=== PATIENT | male | born 1960 | race Caucasian/White ===

== ENCOUNTER → 2020-02-27 11:42 | Outpatient (BNVA) | payer OTHER, SELFPAY | PROVIDERS: Visit Provider Nurse Practitioner Family | DX: R68.89 Other general symptoms and signs (principal) | CPT/HCPCS: 87635 ==

== ENCOUNTER 2020-06-16 11:48 | Outpatient (CLI) | payer OTHER, SELFPAY ==
--- NOTE | 2020-06-16 11:58 | US_ITS ---
WS: [id number] Complete ABDOMINAL ULTRASOUND HISTORY: ABD PAIN COMPARISON: None available. Liver: 16.8 cm in length. Mildly enlarged liver with mild diffuse hepatic steatosis. No mass. No bile duct dilatation. Gallbladder: Normally distended with no gallstones, wall thickening or pericholecystic fluid. Gallbladder wall thickness: 0.2 cm. Pancreas: Normal size and echogenicity. CBD: 0.5 cm. Right kidney: 11.2 cm x 5.7 cm x 4.0 cm. No mass, cortical thickening or hydronephrosis. Left kidney: 11.8 cm x 4.2 cm x 4.5 cm. No mass, cortical thickening or hydronephrosis. Spleen: Normal size and echogenicity. Abdominal aorta and IVC are within normal limits. No ascites. US/US abdomen complete* [id number] IMPRESSION: 1. Normal gallbladder. 2. Mild hepatomegaly and hepatic steatosis.
--- NOTE | 2020-06-16 11:58 | US_ITS ---
WS: [id number] TESTICULAR ULTRASOUND HISTORY: R GROIN PAIN, DIZZINESS COMPARISON: None available. TECHNIQUE: Real-time and color Doppler imaging or utilized to perform a testicular ultrasound. Right testicle: 5.2 cm x 2.1 cm x 2.1 cm. Normal size and echogenicity. No mass or torsion. Normal color Doppler is present throughout. Systolic and diastolic velocities are both present. No significant hydrocele. Right epididymis: Very mild increased vascularity involving the epididymis with low echogenicity. Left testicle: Prior orchiectomy. No mass or fluid within the LEFT scrotum. US/US scrotum [id number] IMPRESSION: 1. Normal RIGHT testicle. 2. Prior LEFT orchiectomy. 3. Suspect very mild early findings of RIGHT epididymitis.
== END 2020-06-16 11:49 | disposition home or self-care (01) ==
PROVIDERS: PCP Nurse Practitioner Family; Visit Provider Nurse Practitioner Family
DX: R10.2 Pelvic and perineal pain (principal); R42 Dizziness and giddiness; R16.0 Hepatomegaly, not elsewhere classified; K76.0 Fatty (change of) liver, not elsewhere classified
CPT/HCPCS: 76700; 76870

== ENCOUNTER → 2020-07-11 08:07 | Outpatient (BNVA) | payer OTHER, SELFPAY | PROVIDERS: PCP Nurse Practitioner Family; Visit Provider Urology | DX: Z12.5 Encounter for screening for malignant neoplasm of prostate (principal); Z90.79 Acquired absence of other genital organ(s) | CPT/HCPCS: 81003; G0103 ==

== ENCOUNTER 2021-11-24 12:07 | Outpatient (CLI) | payer OTHER, SELFPAY ==
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
== END 2021-11-24 12:08 | disposition home or self-care (01) ==
LOC: RAD 12:09
PROVIDERS: PCP Nurse Practitioner Family; Visit Provider Nurse Practitioner Family
DX: M54.50 Low back pain, unspecified (principal); R07.81 Pleurodynia; V89.2XXA Person injured in unspecified motor-vehicle accident, traffic, initial encounter
CPT/HCPCS: 71101

== ENCOUNTER 2022-05-14 07:35 | Outpatient (CLI) | payer OTHER, SELFPAY ==
--- NOTE | 2022-05-14 07:43 | MR_ITS ---
WS: [id number] MRI LEFT SHOULDER NONCONTRAST TECHNIQUE: Sagittal T2, coronal T1, T2 and proton density imaging. Axial gradient PDE imaging. CLINICAL INFORMATION: ACUTE PAIN OF LEFT SHOULDER COMPARISON: None. FINDINGS: Mild degenerative arthritis AC joint with moderate edema. Subacromial space is preserved. Distal supr aspinatus is intact. Normal infraspinatus. Normal teres minor. Normal subscapularis. Normal biceps tendon in the bicipital groove. Normal biceps labral anchor. Normal intratesticular bic eps tendon. Degenerative fraying glenoid labrum. No acute fractures. MR/MR shoulder LT wo con* [id number] IMPRESSION: 1. Mild degenerative arthritis AC joint with moderate edema. Recommend correla tion for AC joint injaury. Subacromial space is preserved. 2. Rotator cuff is normal in appearance. No acute rotator cuff tears. 3. Normal biceps tendon in the bicipital groove. Normal biceps labral anchor. 4. Biceps tendon appears intact in the bicipital groove. Normal intra-articula r biceps tendon. 5. No acute fractures
== END 2022-05-14 07:36 | disposition home or self-care (01) ==
PROVIDERS: PCP Nurse Practitioner Family; Visit Provider Nurse Practitioner Family
DX: M25.512 Pain in left shoulder (principal); M19.012 Primary osteoarthritis, left shoulder
CPT/HCPCS: 73221

== ENCOUNTER → 2022-06-06 10:39 | Outpatient (BNVA) | payer OTHER, SELFPAY | PROVIDERS: PCP Nurse Practitioner Family; Referring Provider Nurse Practitioner Family; Visit Provider Orthopaedic Surgery | DX: M25.512 Pain in left shoulder (principal); M75.02 Adhesive capsulitis of left shoulder | CPT/HCPCS: 73030 ==

== ENCOUNTER 2024-02-03 08:24 | Day surgery (SDC) | payer BC, MEDICAID, SELFPAY ==
[2024-02-03 08:45] VITALS: BP 164/96; PULSE 102; RESP 16; TEMP 36.1; O2SAT 98; BMI 25.0
[2024-02-03] MEDS: sodium chloride 0.9% 1,000 ML 30 ML IV ×2 (09:02→10:53)
--- NOTE | 2024-02-03 10:00 | ANES.PREANE2 ---
Pre-Anesthetic Assessment Height/Weight: Height 1.83 m Weight 83.915 kg Temp Pulse Resp BP Pulse Ox O2 Del Method 97 F L 102 H 16 164/96 98 Room Air 02/03/24 08:45 02/03/24 08:45 02/03/24 08:45 02/03/24 08:45 02/03/24 08:45 02/03/24 08:45 Preop Diagnosis: screening Operation Date: 02/03/24 09:40 Proposed Procedures p Colonoscopy 70400, G0105, z12.11(Not Applicable) - Vijay Lacey MD Familial anesthetic complications: none Was Beta Bandar taken within 24 hours: N/A Was Clonidine taken within 24 hours: N/A Last intake: Intake Last Liquid Date 02/03/24 Last Liquid Time 07:30 Last Solid Date 02/02/24 Last Solid Time 12:00 Social Alcohol (3-4 beers a day) and No tobacco Exam alert and oriented x 3 Airway Submandibular: within normal limits Cervical ROM: within normal limits Mallampati: Class II Dentition: false Pulmonary Asthma (as a child- doesnt use inhalers) CV/HEM None reported None reported Hepatic None reported GI Gastroesophageal Reflux Disease chronic diarrhea- takes 4-8 imodium/day Metabolic None reported Musc/skel None reported Neuropsych takes clonazepam for tremors Anesthetic Plan ASA status: 3 Anesthesia: Anesthesia Evaluation, General and MAC Risk of > 500 ml blood loss (7ml/kg in children): No Medications/Allergies Home Medications Medication Instructions Recorded Confirmed Last Taken Type aspirin 81 mg tablet,delayed 81 mg PO DAILY 06/06/22 02/03/24 01/27/24 History release (Mariela Low Dose Aspirin) diclofenac potassium 50 mg tablet 50 mg PO BID 06/06/22 02/03/24 2 Months Ago History ~12/03/23 potassium gluconate 500 mg (83 mg) 500 mg PO DAILY 06/06/22 02/03/24 02/01/24 History tablet clonazepam 0.5 mg tablet 0.5 mg PO Q4-5H PRN Anxiety 01/30/24 02/03/24 02/02/24 History diphenoxylate-atropine 2.5 1 tab PO DAILY PRN Diarrhea 02/03/24 02/03/24 02/01/24 History mg-0.025 mg tablet (Lomotil) famotidine 40 mg tablet 40 mg PO DAILY 02/03/24 02/03/24 02/01/24 History Allergies Allergy/AdvReac Type Severity Reaction Status Date / Time No Known Allergies Allergy Verified 01/30/24 08:50 Current Medications Generic Name Dose Route Start Last Admin Trade Name Freq PRN Reason Stop Dose Admin Sodium Chloride 1,000 mls @ 30 mls/hr 02/03/24 08:45 02/03/24 09:02 Sodium Chloride 0.9% IV 30 mls/hr .Q24H RADHA Administration PFSH Anesthesia Medical History Prostate cancer screening Groin strain Surgical History H/O removal of testicle Family History Father , in his 80's Cancer bone Social History Smoking and tobacco/nicotine status: never used tobacco/nicotine Alcohol intake: current Alcohol intake frequency: 0-2 Drinks per Day Alcohol type: beer Substance/Drug Use: never Marital status: Current occupational status: employed Current gender identity: Male Data Anesthesia Cardiac Studies: No Data to Display
--- NOTE | 2024-02-03 10:15 | W.PM.OPSFHP ---
Same Day Surgery H&P Indication for Procedure/HPI DATE OF PROCEDURE: February 03, 2024 CHIEF COMPLAINT/INDICATIONFOR SURGICAL PROCEDURE: screening PREOP DIAGNOSIS: screening PLANNED PROCEDURE: Operation Date: 02/03/24 09:40 Proposed Procedures p Colonoscopy 40913, G0105, z12.11(Not Applicable) - Vijay Lacey MD Medications/Allergies* Home Medications Medication Instructions Recorded Confirmed Type aspirin 81 mg tablet,delayed 81 mg PO DAILY 06/06/22 02/03/24 History release (Mariela Low Dose Aspirin) diclofenac potassium 50 mg tablet 50 mg PO BID 06/06/22 02/03/24 History potassium gluconate 500 mg (83 mg) 500 mg PO DAILY 06/06/22 02/03/24 History tablet clonazepam 0.5 mg tablet 0.5 mg PO Q4-5H PRN Anxiety 01/30/24 02/03/24 History diphenoxylate-atropine 2.5 1 tab PO DAILY PRN Diarrhea 02/03/24 02/03/24 History mg-0.025 mg tablet (Lomotil) famotidine 40 mg tablet 40 mg PO DAILY 02/03/24 02/03/24 History Allergies/Adverse Reactions Allergy/AdvReac Type Severity Reaction Status Date / Time No Known Allergies Allergy Verified 01/30/24 08:50 Current Medications: Generic Name Dose Route Start Last Admin Trade Name Freq PRN Reason Stop Dose Admin Sodium Chloride 1,000 mls @ 30 mls/hr 02/03/24 08:45 02/03/24 09:02 Sodium Chloride 0.9% IV 30 mls/hr .Q24H RADHA Administration Pertinent History/Comorbid Conditions* Medical History (Updated 06/06/22 @ 11:37 by Florentino Kc MD) Prostate cancer screening Groin strain Surgical History (Updated 07/11/20 @ 09:35 by Kay Hatch APRN) H/O removal of testicle Family History (Updated 07/11/20 @ 08:14 by Gisselle White LPN) Father, in his 80's Cancer Father bone Social History Smoking and tobacco/nicotine status: never used tobacco/nicotine Alcohol intake: current Alcohol intake frequency: 0-2 Drinks per Day Alcohol type: beer Substance/Drug Use: never Marital status: Current occupational status: employed Current gender identity: Male Pertinent Exam Findings alert, oriented x 3, regular rate & rhythm and procedure specific exam findings Abdomen soft, NT, ND Recommendations Surgery/Procedure today Other Plans: Procceed with scope Coding Level of Care Code Acute Code for Chg Fwd Time Spent (min) 30
--- NOTE | 2024-02-03 11:05 | ANE.PACU2 ---
Inpatient post-anesthesia follow up: Airway intact: Yes Vital signs: Temperature 97.8 F Pulse Rate 74 Respiratory Rate 18 Blood Pressure 136/82 Pulse Oximetry 97 Oxygen Delivery Me thod Room Air Oxygen Flow Rate Fraction of Inspir ed Oxygen Hydration adequate: Yes Nausea and vomiting: No Pain level: 1 Mental status: Baseline
[2024-02-03 11:14] VITALS: BP 135/75; PULSE 77; RESP 18; TEMP 36.6; O2SAT 98
[2024-02-03 11:21] VITALS: BP 136/82; PULSE 74; RESP 18; O2SAT 97
== END 2024-02-03 11:38 | disposition home or self-care (01) ==
PROVIDERS: PCP Nurse Practitioner Family; Visit Provider Student in an Organized Health Care Education/Training Program
PROC: 0DJD8ZZ Inspection of Lower Intestinal Tract, Via Natural or Artificial Opening Endoscopic (ICD-10-PCS; CPT 45378; principal; 2024-02-03 09:40)
DX: Z12.11 Encounter for screening for malignant neoplasm of colon (principal); D12.8 Benign neoplasm of rectum; K63.5 Polyp of colon
CPT/HCPCS: 45380; 45385; 88305; J2704; J7030